=== PATIENT | male | born 1950 | race Caucasian/White ===

== ENCOUNTER 2016-12-08 06:41 | Day surgery (SDC) | payer BC ==
[2016-12-08] MEDS ORDERED: Lidocaine 1% INJ* 10 MG/ML 30 ML SDV ONE (07:12)
[2016-12-08 08:20] VITALS: BP 135/71
--- NOTE | 2016-12-08 23:37 | OP ---
CC: Nicolette Han MD OPERATIVE NOTE: DATE OF OPERATION: 12/08/16 DATE OF : 46 SURGEON: Nicolette Han MD MINERALOGY PROFESSOR: MARK Parkinson ANESTHESIA: Local. PRE-OP DIAGNOSIS: Foreign body in the right hand. POST-OP DIAGNOSIS: Foreign body in the right hand. OPERATIVE PROCEDURE: Removal of hand mass, right side. ESTIMATED BLOOD LOSS: Zero. TOURNIQUET TIME: 5 minutes. INDICATION FOR PROCEDURE: Young is a 66-year-old man, who has a painful mass on the dorsal aspect of his right hand. He remembers having a gia thorn puncture his hand 18 months ago. He presents for removal of the mass. DESCRIPTION OF PROCEDURE: The patient was brought to the operating room, was given a local anesthet ic with 10 cc of 1% plain lidocaine. The skin of his right hand and forearm was prepped and draped in usual sterile fashion. The hand and forearm were exsanguinated and the tourniquet elevated to 25 0 mmHg. A longitudinal incision was made centered over the palpable mass. There was a gia thorn t hat was removed along with the foreign body reaction around it. The wound was irrigated and the ski n edges reapproximated with 4-0 nylon suture. The wound was dressed with Xeroform, 4x4, Webril, and Coban. The patient tolerated the procedure well and brought to the recovery room in good condition . [id number]/[facility] #: [id number]
== END 2016-12-08 08:11 | disposition home or self-care (01) ==
LOC: OREAST 06:41
PROVIDERS: ATTEND Orthopaedic Surgery
DX: S60.551A Superficial foreign body of right hand, initial encounter (principal); W45.8XXA Other foreign body or object entering through skin, initial encounter; Y92.9 Unspecified place or not applicable; L02.511 Cutaneous abscess of right hand; I10 Essential (primary) hypertension; Z87.891 Personal history of nicotine dependence
CPT/HCPCS: 88304; J2001

== ENCOUNTER 2018-01-05 08:04 | Emergency (ER) | payer BC, OTHER ==
[2018-01-05] MEDS ORDERED: Buffered Lidocaine 0.9% SYRIN* 5 ML/SYR SYRINGE INTRADERM ONE (08:27)
--- NOTE | 2018-01-05 08:35 | ED ---
Skin Complaint - HPI Summary HPI Summary: [id number] patient here with laceration to the base of his right palm after slipping from his chair earlier today. He denies numbness, tingling, weakness and no yesy debris within the wound. Bleeding is controlled. He denies acute pain however the wound is open and he believes he needs sutures. His tetanus vaccine is up-to-date (believes he received this through his PCP in the last 3-4 years). He also admits to a history of neutropenia and is susceptible to infections. Will treat wound prophylactically with antibiotics today. - History of Current Complaint Chief Complaint: EDLacSutureRecheck Time Seen by Provider: 01/05/18 08:13 Stated Complaint: RT HAND LAC Hx Obtained From: Patient, Family/Interventional Radiology Tech - Pain Intensity: 1 - Allergy/Home Medications Allergies/Adverse Reactions: Allergies Allergy/AdvReac Type Severity Reaction Status Date / Time bee venom protein (honey bee) Allergy Swelling Verified 01/05/18 08:11 PMH/Surg Hx/FS Hx/Imm Hx Previously Healthy: Yes Endocrine/Hematology History: Reports: Other Endocrine/Hematological Disorders - neutropenia Denies: Hx Anticoagulant Therapy, Hx Blood Disorders, Hx Diabetes Cardiovascular History: Reports: Hx Hypertension - ON DAILY MEDS, Hx Rheumatic Fever - CHILD Denies: Hx Pacemaker/ICD History: Denies: Hx Renal Disease Musculoskeletal History: Reports: Hx Arthritis - HIPS, KNEES , FR LEFT HIP 1980 Sensory History: Reports: Hx Cataracts - BILATERAL, Hx Contacts or Glasses - GLASSES Denies: Hx Hearing Aid Opthamlomology History: Reports: Hx Cataracts - BILATERAL, Hx Contacts or Glasses - GLASSES Neurological History: Reports: Hx Migraine - Hx YOUNG ADULT, CLUSTER, NONE SINCE AGE 33 Psychiatric History: Denies: Hx Panic Disorder - Cancer History Cancer Type, Location and Year: BASAL CELL MANDAEN - Surgical History Surgery Procedure, Year, and Place: 1979 FR HIP/ [facility](no surgery to hip). BASAL CELL REMOVED LEFT MANDAEN Hx Anesthesia Reactions: No - Immunization History Immunizations Up to Date: Yes Infectious Disease History: No Infectious Disease History: Denies: Traveled Outside the [place] in Last 30 Days - Family History Known Family History: Positive: None - Social History Occupation: Retired Lives: With Family - Alcohol Use: Daily Alcohol Amount: 2 GLASSES WINE DAILY Hx Substance Use: No Substance Use Type: Reports: None Hx Tobacco Use: Yes - not currently Smoking Status (MU): Former Smoker Amount Used/How Often: 1PPD 20 YRS Have You Smoked in the Last Year: No Review of Systems Constitutional: Negative Negative: Fever, Chills, Fatigue Positive: no symptoms reported Musculoskeletal: Negative Skin: Other - lac Neurological: Other - lumbar radiculopathy d/t compression from mass in lumbar region - scheduled for surgical repair Psychological: Normal All Other Systems Reviewed And Are Negative: Yes Physical Exam Triage Information Reviewed: Yes Vital Signs On Initial Exam: Initial Vitals Temp Pulse Resp BP Pulse Ox 97.3 F 73 16 153/87 99 01/05/18 08:05 01/05/18 08:05 01/05/18 08:05 01/05/18 08:05 01/05/18 08:05 Vital Signs Reviewed: Yes Appearance: Positive: Well-Appearing, No Pain Distress, Well-Nourished Skin: Positive: Warm, Skin Color Reflects Adequate Perfusion - stellate wound over Rt palm - adispose tissue is observed - no yesy debris - bleeding controlled Head/Face: Positive: Normal Head/Face Inspection Eyes: Positive: EOMI ENT: Positive: Hearing grossly normal Respiratory/Lung Sounds: Positive: Breath Sounds Present Cardiovascular: Positive: Pulses are Symmetrical in both Upper and Lower Extremities Musculoskeletal: Positive: Normal, Strength/ROM Intact Neurological: Positive: Normal, Sensory/Motor Intact - in RUE Psychiatric: Positive: Normal Procedures - Laceration/Wound Repair 1 Location: upper extremity - Rt palm Description: Stellate Anesthesia: Local, Lido, Bicarb Length, Depth and Shape: 1.5cm (longest area of injury) x 3.5mm - adispose tissue observed - small tear present - clean, no FB - no nerve, vessel or deeper connective tissue observed Betadine Prep?: Yes Irrigated w/ Saline (ccs): 100 - sterile saline Laceration/Wound Explored: clean Closure: Single Layer Suture Type: Other - ethilon 5-0 Number of Sutures: 5 - small area about tear unsutured for drainage PRN - requested by pt Layer Closure?: No Sterile Dressing Applied?: Yes - triple anbx ointment + gauze + LIBRA wrap - hemodynamically stable Diagnostics - Vital Signs Vital Signs Temp Pulse Resp BP Pulse Ox 01/05/18 08:05 97.3 F 73 16 153/87 99 - Laboratory Lab Statement: Any lab studies that have been ordered have been reviewed, and results considered in the medical decision making process. Course/Dx - Diagnoses Provider Diagnoses: Laceration of right hand Discharge - Sign-Out/Discharge Documenting (check all that apply): Discharge/Admit/Transfer - Discharge Plan Condition: Stable Disposition: HOME Prescriptions: Cephalexin CAP* [Keflex CAP*] 500 mg PO BID #20 cap Patient Education Materials: Care For Your Stitches (ED), Laceration (ED) Referrals: China Cook MD [Primary Care Provider] - Additional Instructions: Keep Dressing clean and dry and in place for the next 48 hours. After that time he may remove dressing, gently wash wound with soap and water, rinse well and pat dry with clean cloth. Reapply triple antibiotic ointment and clean gauze dressing. Continue this daily until sutures are removed. Call your PCP to schedule wound recheck and suture removal in 10-14 days. For pain/swelling, you may rest, elevate, ice and take ibuprofen with food as needed. Avoid lifting, gripping, leaning onto injured area to prevent suture rupture. Avoid soaking to prevent wound dehiscence. * If you develop redness, swelling, streaking, purulent drainage, fevers or chills, seek medical attention sooner or return to the emergency department. NOTE: due to your neutropenic status, you were started on an antibiotic today. Complete the course and discuss with PCP in the event this needs to be extended. It is also recommended that you consume probioitics while taking antibiotic to prevent diarrhea. - Billing Disposition and Condition Condition: STABLE Disposition: Home
[2018-01-05 09:48] VITALS: BP 146/89
== END 2018-01-05 09:46 | disposition home or self-care (01) ==
LOC: ED 08:04
DX: S61.411A Laceration without foreign body of right hand, initial encounter (principal); W07.XXXA Fall from chair, initial encounter; Y92.9 Unspecified place or not applicable; I10 Essential (primary) hypertension; Z87.891 Personal history of nicotine dependence
CPT/HCPCS: 99282

== ENCOUNTER 2018-11-24 21:13 | Emergency (ER) | payer BC, OTHER ==
--- NOTE | 2018-11-24 22:20 | ED ---
Lower Extremity - HPI Summary HPI Summary: Patient is a 68 y/o M presenting to ED with complaints of left leg edema. Patient states that he noted the swelling at his left leg today at around noon. Leg pain and erythema, chest pain, SOB, are denied. He notes that he drove back- and-forth from [place] yesterday, stating that the drive was around 10 hours long. Patient took 324 ASA earlier today. No Hx of blood clots. Patient is on lipitor and valsartan. On triage, pain is denied, nothing is noted to aggravate/alleviate Sx. Home medications and allergies are reviewed. - History of Current Complaint Chief Complaint: EDExtremityLower Stated Complaint: "SWELLING IN LEGS PER PT" Time Seen by Provider: 11/24/18 21:58 Hx Obtained From: Patient Mechanism Of Injury: Other - no KATELYNN Onset/Duration: Still Present Severity Currently: None Pain Intensity: 0 Pain Scale Used: 0-10 Numeric Timing: Lasting Hours Location: Is Discrete @ - left leg Associated Signs And Symptoms: Positive: Swelling - left leg, Other - NEGATIVE - CHEST PAIN, SOB. Negative: Redness Aggravating Factor(s): Nothing Alleviating Factor(s): Nothing - Allergies/Home Medications Allergies/Adverse Reactions: Allergies Allergy/AdvReac Type Severity Reaction Status Date / Time bee venom protein (honey bee) Allergy Swelling Verified 11/24/18 21:18 PMH/Surg Hx/FS Hx/Imm Hx Endocrine/Hematology History: Reports: Other Endocrine/Hematological Disorders - neutropenia Denies: Hx Anticoagulant Therapy, Hx Blood Disorders, Hx Diabetes Cardiovascular History: Reports: Hx Hypertension - ON DAILY MEDS, Hx Rheumatic Fever - CHILD Denies: Hx Pacemaker/ICD History: Denies: Hx Renal Disease Musculoskeletal History: Reports: Hx Arthritis - HIPS, KNEES , FR LEFT HIP 1980 Sensory History: Reports: Hx Cataracts - BILATERAL, Hx Contacts or Glasses - GLASSES Denies: Hx Hearing Aid Opthamlomology History: Reports: Hx Cataracts - BILATERAL, Hx Contacts or Glasses - GLASSES Neurological History: Reports: Hx Migraine - Hx YOUNG ADULT, CLUSTER, NONE SINCE AGE 33 Psychiatric History: Denies: Hx Panic Disorder - Cancer History Cancer Type, Location and Year: BASAL CELL RELIGIOUS - Surgical History Surgery Procedure, Year, and Place: 1979 FR HIP/ [facility](no surgery to hip). BASAL CELL REMOVED LEFT RELIGIOUS Hx Anesthesia Reactions: No Infectious Disease History: No Infectious Disease History: Denies: Traveled Outside the [place] in Last 30 Days - Family History Known Family History: Positive: Other - FMHX of GI malignancy - Social History Alcohol Use: Daily Alcohol Amount: 2 GLASSES WINE DAILY Hx Substance Use: No Substance Use Type: Reports: None Hx Tobacco Use: Yes - not currently Smoking Status (MU): Former Smoker Amount Used/How Often: 1PPD 20 YRS Have You Smoked in the Last Year: No Review of Systems Negative: Chest Pain Negative: Shortness Of Breath Musculoskeletal: Other - NEGATIVE - LEFT LEG PAIN Positive: Edema - left leg Skin: Other - NEGATIVE - LEFT LEG ERYTHEMA All Other Systems Reviewed And Are Negative: Yes Physical Exam - Summary Physical Exam Summary: VITAL SIGNS: Reviewed. GENERAL: Patient is a well-developed and nourished male who is lying comfortable in the stretcher. Patient is not in any acute respiratory distress. HEAD AND FACE: No signs of trauma. No ecchymosis, hematomas or skull depressions. No sinus tenderness. EYES: PERRLA, EOMI x 2, No injected conjunctiva, no nystagmus. EARS: Hearing grossly intact. Ear canals and tympanic membranes are within normal limits. MOUTH: Oropharynx within normal limits. NECK: Supple, trachea is midline, no adenopathy, no JVD, no carotid bruit, no c- spine tenderness, neck with full ROM CHEST: Symmetric, no tenderness at palpation LUNGS: Clear to auscultation bilaterally. No wheezing or crackles. CVS: Regular rate and rhythm, S1 and S2 present, no murmurs or gallops appreciated. ABDOMEN: Soft, non-tender. No signs of distention. No rebound no guarding, and no masses palpated. Bowel sounds are normal. EXTREMITIES: FROM in all major joints, no cyanosis or clubbing. LLE edema is noted, no tenderness, no redness. NEURO: Alert and oriented x 3. No acute neurological deficits. Speech is normal and follows commands. SKIN: Dry and warm Triage Information Reviewed: Yes Vital Signs On Initial Exam: Initial Vitals Temp Pulse Resp BP Pulse Ox 98 F 78 16 131/99 95 11/24/18 21:15 11/24/18 21:15 11/24/18 21:15 11/24/18 21:15 11/24/18 21:15 Vital Signs Reviewed: Yes Diagnostics - Vital Signs Vital Signs Temp Pulse Resp BP Pulse Ox 11/24/18 21:15 98 F 78 16 131/99 95 - Laboratory Lab Statement: Any lab studies that have been ordered have been reviewed, and results considered in the medical decision making process. - Ultrasound No standard instances Ultrasound Interpretation Completed By: Radiologist Summary of Ultrasound Findings: LLE VENOUS DOPPLER STUDY IMPRESSION: No evidence of deep vein thrombosis from the left common femoral to the. popliteal veins. THIS REPORT WAS REVIEWED BY DR. WHATLEY. Re-Evaluation - Re-Evaluation First Eval Re-Evaluation Time: 23:29 Comment: US discussed with patient, he will be discharged to home with PCP follow up and strict return precautions. He is agreeable with discharge. Lower Extremity Course/Dx - Course Course Of Treatment: Patient is a 68 y/o M presenting to ED with complaints of left leg edema. Patient states that he noted the swelling at his left leg today at around noon. Leg pain and erythema, chest pain, SOB, are denied. He notes that he drove [id number] from [place] yesterday, stating that the drive was around 10 hours long. Patient took 324 ASA earlier today. No Hx of blood clots. On physical exam, LLE edema is noted, no tenderness, no redness. LLE VENOUS DOPPLER STUDY IMPRESSION: No evidence of deep vein thrombosis from the left common femoral to the. popliteal veins. US discussed with patient, he will be discharged to home with PCP follow up and strict return precautions. He is agreeable with discharge. - Diagnoses Provider Diagnoses: Leg edema, left Discharge - Sign-Out/Discharge Documenting (check all that apply): Patient Departure - discharge Patient Received Moderate/Deep Sedation with Procedure: No - Discharge Plan Condition: Stable Disposition: HOME Patient Education Materials: Leg Edema (ED) Referrals: China Cook MD [Primary Care Provider] - 3 Days Additional Instructions: PLEASE RETURN TO THE ED IMMEDIATELY FOR WORSENING OR CONCERNING SYMPTOMS. FOLLOW UP WITH YOUR PRIMARY CARE PHYSICIAN WITHIN THREE DAYS. - Attestation Statements Document Initiated by Scribe: Yes Documenting Scribe: AMADOR ALVARADO Provider For Whom Scribe is Documenting (Include Credential): KHLOE WHATLEY MD Scribe Attestation: AMADOR Pretty, scribed for KHLOE WHATLEY MD on 11/25/18 at 0023. Status of Scribe Document: Ready
[2018-11-24 23:47] VITALS: BP 123/69
== END 2018-11-24 23:46 | disposition home or self-care (01) ==
LOC: ED 21:13
DX: R60.0 Localized edema (principal); M16.0 Bilateral primary osteoarthritis of hip; M17.0 Bilateral primary osteoarthritis of knee; I10 Essential (primary) hypertension; Z85.828 Personal history of other malignant neoplasm of skin; Z91.030 Bee allergy status; Z87.891 Personal history of nicotine dependence
CPT/HCPCS: 99282